=== PATIENT | female | born 1950 | race Two or more races ===

== ENCOUNTER 2021-05-05 16:48 | Inpatient (IN) | payer OTHER ==
[~2021-05-05] VITALS: Ht 152.4 cm; Wt 58.1 kg
[2021-05-05] MEDS ORDERED: JANUMET 50-1,01 EACH (17:39)
== END 2021-05-11 22:55 | disposition home or self-care (01) | DRG 637 ==
LOC: ER 16:48 → MEDJ 05-06 11:55
PROVIDERS: ADMIT Internal Medicine; ATTEND Internal Medicine
PROC: 0HBNXZZ Excision of Left Foot Skin, External Approach (ICD-10-PCS; principal; 2021-05-06)
DX: E11.65 Type 2 diabetes mellitus with hyperglycemia (principal); I11.0 Hypertensive heart disease with heart failure; I50.21 Acute systolic (congestive) heart failure; E11.621 Type 2 diabetes mellitus with foot ulcer; L97.421 Non-pressure chronic ulcer of left heel and midfoot limited to breakdown of skin; N39.0 Urinary tract infection, site not specified; E87.1 Hypo-osmolality and hyponatremia; I50.1 Left ventricular failure, unspecified; J10.1 Influenza due to other identified influenza virus with other respiratory manifestations; E86.0 Dehydration; Z79.84 Long term (current) use of oral hypoglycemic drugs